=== PATIENT | male | born 1975 | race African-American/Black ===

== ENCOUNTER 2017-06-20 05:28 | Emergency (ER) | payer OTHER ==
[2017-06-20] MEDS ORDERED: NORCO 5-325 TA1 EACH PO (06:54)
== END 2017-06-20 09:21 | disposition home or self-care (01) ==
LOC: ED 05:28
DX: S51.812A Laceration without foreign body of left forearm, initial encounter (principal); S40.011A Contusion of right shoulder, initial encounter; S90.02XA Contusion of left ankle, initial encounter; V59.9XXA Occupant (driver) (passenger) of pick-up truck or van injured in unspecified traffic accident, initial encounter
CPT/HCPCS: 36415; 71010; 73030; 73090; 73610; 73630; 80053; 81001; 82150; 82550; 85025; 86850; 86900; 86901; 96374; 99283; G0480; J2270